=== PATIENT | female | born 1995 | race Caucasian/White ===

== ENCOUNTER 2016-08-30 20:46 | Inpatient (IN) | payer MEDICAID, OTHER ==
[~2016-08-30] VITALS: Ht 160 cm; Wt 85.3 kg
[2016-08-30] MEDS ORDERED: SODIUM CHLORIDE 0.9% 1,000 ML IV ONE (21:33)
[2016-08-30 22:08] LABS: CLARITY URINE CLOUDY (CLEAR); COLOR URINE YELLOW (YELLOW); KETONES URINE TRACE (NEGATIVE); LEUKOCYTE ESTERASE URINE NEGATIVE (NEGATIVE); NITRITE URINE NEGATIVE (NEGATIVE); OCCULT BLOOD URINE NEGATIVE (NEGATIVE); PH URINE >=9.0 (4.5-8.0); PROTEIN URINE TRACE (NEGATIVE); SPECIFIC GRAVITY URINE 1.019 (1.005-1.030); UROBILINOGEN URINE 0.2 E.U./dL (0.2-1.0)
[2016-08-30 22:18] LABS: *AMPHETAMINES SCREEN URINE NEGATIVE (NEGATIVE); *BARBITURATES SCREEN URINE NEGATIVE (NEGATIVE); *BENZODIAZEPINES SCREEN URINE NEGATIVE (NEGATIVE); *COCAINE SCREEN URINE NEGATIVE (NEGATIVE); CANNABINOID URINE SCREEN NEGATIVE (NEGATIVE); METHADONE URINE SCREEN NEGATIVE (NEGATIVE); OPIATES URINE SCREEN NEGATIVE (NEGATIVE); PHENCYCLIDINE URINE SCREEN NEGATIVE (NEGATIVE)
[2016-08-30 22:31] LABS: HEMATOCRIT. 40.4 % (36.0-48.0); HEMOGLOBIN. 13.9 g/dL (12.0-16.0); MEAN CORPUSCULAR HEMOGLOBIN 28.8 pg (28.0-32.0); MEAN CORPUSCULAR VOLUME 83.4 fL (81.0-99.0); MEAN PLATELET VOLUME 9.5 fl (7.4-10.4); PLATELET 224 x1000/uL (130-400); RED BLOOD CELL COUNT 4.85 mill/uL (4.2-5.4); RED CELL DISTRIBUTION WIDTH 13.1 % (11.6-14.6)
[2016-08-30 22:38] LABS: HCG SCREEN NEGATIVE
[2016-08-30 22:40] LABS: CARBON DIOXIDE 25 mEq/L (21-32); CHLORIDE 104 mEq/L (98-107)
[2016-08-30 22:41] LABS: PROTHROMBIN TIME 10.6 sec
[2016-08-30 22:46] LABS: TROPONIN I < 0.02 ng/mL (0.00-0.04)
[2016-08-30 23:01] LABS: PLATELET ESTIMATE NORMAL
[2016-08-30] MEDS ORDERED: ASPIRIN 81MG TABLET PO ONE (23:15)
[2016-08-30] MEDS ORDERED: LORAZEPAM 2MG/ML CPJ IV ONE (23:15)
[2016-08-31] MEDS ORDERED: MORPHINE SULFATE 4 MG/ML CPJ (NOT FOR IM USE) IV ONE
[2016-08-31] MEDS ORDERED: ONDANSETRON HCL 4MG/2ML VIAL IV ONE
[2016-08-31] MEDS ORDERED: IPRATROPIUM/ALBUTEROL 0.5-3(2.5)MG/3ML NEB INH PRN (01:15)
[2016-08-31] MEDS ORDERED: DOCUSATE SODIUM 100MG CAPSULE PO PRN (01:15)
[2016-08-31] MEDS ORDERED: ACETAMINOPHEN 325MG TABLET PO PRN (01:15)
[2016-08-31] MEDS ORDERED: HYDROCODONE/ACETAMINOPHEN 5/325MG TABLET PO PRN ×2 (01:15→17:00)
[2016-08-31] MEDS ORDERED: MAGNESIUM/ALUMINUM HYDROXIDE/SIMETHICONE 30ML UDC PO PRN (01:15)
[2016-08-31] MEDS ORDERED: CLONIDINE 0.1MG TABLET PO PRN (01:15)
[2016-08-31 02:25] LABS: CHLORIDE 103 mEq/L (98-107)
[2016-08-31 02:30] LABS: CARBON DIOXIDE 25 mEq/L (21-32)
[2016-08-31] MEDS: MORPHINE SULFATE 4 MG/ML CPJ (NOT FOR IM USE) IV PRN ×3 (04:33→13:01)
[2016-08-31] MEDS: ONDANSETRON HCL 4MG/2ML VIAL IV PRN ×2 (04:33→13:01)
[2016-08-31 06:14] LABS: CREATINE KINASE 63 IU/L (26-192); CREATINE KINASE MB FRACTION < 0.5 ng/mL (0.5-3.6); TROPONIN I < 0.02 ng/mL (0.00-0.04)
[2016-08-31] MEDS ORDERED: GADOBENATE DIMEGLUMINE 529 MG/ML 10ML IV ONE (10:11)
[2016-08-31 18:03] LABS: CREATINE KINASE 60 IU/L (26-192); CREATINE KINASE MB FRACTION < 0.5 ng/mL (0.5-3.6); TROPONIN I < 0.02 ng/mL (0.00-0.04)
[2016-08-31] MEDS: LEVETIRACETAM 250MG TABLET PO SCH (20:47)
[2016-09-01] MEDS: AMITRIPTYLINE 25MG TABLET PO SCH ×2 (00:17→20:34)
[2016-09-01 06:34] LABS: BASOPHILS % 0.5 % (0.0-2.0); EOSINOPHILS % 0.6 % (0.0-5.0); HEMATOCRIT. 39.4 % (36.0-48.0); HEMOGLOBIN. 13.5 g/dL (12.0-16.0); LYMPHOCYTES % 30.3 % (20.0-50.0); MEAN CORPUSCULAR HEMOGLOBIN 29.2 pg (28.0-32.0); MEAN CORPUSCULAR VOLUME 85.3 fL (81.0-99.0); MEAN PLATELET VOLUME 9.2 fl (7.4-10.4); NEUTROPHILS % 59.6 % (40.0-76.0); PLATELET 221 x1000/uL (130-400); RED BLOOD CELL COUNT 4.62 mill/uL (4.2-5.4); RED CELL DISTRIBUTION WIDTH 13.4 % (11.6-14.6)
[2016-09-01] MEDS: LEVETIRACETAM 250MG TABLET PO SCH (08:59)
[2016-09-01 11:49] LABS: CLARITY URINE CLEAR (CLEAR); COLOR URINE YELLOW (YELLOW); KETONES URINE TRACE (NEGATIVE); LEUKOCYTE ESTERASE URINE NEGATIVE (NEGATIVE); NITRITE URINE NEGATIVE (NEGATIVE); OCCULT BLOOD URINE NEGATIVE (NEGATIVE); PH URINE 6.5 (4.5-8.0); PROTEIN URINE NEGATIVE (NEGATIVE); SPECIFIC GRAVITY URINE 1.019 (1.005-1.030); UROBILINOGEN URINE 0.2 E.U./dL (0.2-1.0)
[2016-09-01] MEDS ORDERED: PREDNISONE 20MG TABLET PO NR (19:30)
[2016-09-01] MEDS ORDERED: METOCLOPRAMIDE 10MG/10 ML UDC PO NR (20:00)
[2016-09-01] MEDS ORDERED: SUMATRIPTAN SUCCINATE 25MG TABLET PO NR (20:00)
[2016-09-01] MEDS ORDERED: MAGNESIUM 1 G PREMIX 100 ML IV NR (20:00)
[2016-09-01 21:25] LABS: HCG SCREEN NEGATIVE
[2016-09-02 11:11] VITALS: BP 120/70
== END 2016-09-02 11:55 | disposition home or self-care (01) | DRG 54 ==
LOC: ER 20:50 → EDBEDREQ 22:35 → 7WST 23:56 → EDBEDREQTM 23:59 → EDBEDREQ 23:59 → EDBEDREQSVC 23:59 → ER 08-31 00:49 → 8WST 08-31 00:50 → UNDOADMIN 08-31 00:50 → ENRESERV 08-31 01:32 → CANRESERV 08-31 01:32 → EDBEDREQSVC 08-31 02:24 → ENRESERV 08-31 10:58 → ER 08-31 11:42 → UNDODISIN 09-02 11:55
PROVIDERS: ADMIT Internal Medicine; ATTEND Internal Medicine
DX: G43.909 Migraine, unspecified, not intractable, without status migrainosus (principal); E83.42 Hypomagnesemia; E66.9 Obesity, unspecified; F41.9 Anxiety disorder, unspecified; Z68.33 Body mass index [BMI] 33.0-33.9, adult
CPT/HCPCS: 36415; 70450; 70553; 71010; 80048; 80053; 80305; 81001; 81003; 82550; 82553; 83690; 83735; 84443; 84484; 84703; 85025; 85610; 85730; 87040; 87086; 93005; 93970; 96361; 96374; 96375; 96376; 99285; A9577; C1893; J2060; J2270; J2405; J3475; J7030; J7512; J8597